=== PATIENT | female | born 1960 | race Caucasian/White ===

== ENCOUNTER 2025-03-02 16:27 | Emergency (ER) | payer MEDICARE, MEDICAID ==
[~2025-03-02 16:27] MED LIST: 24HR ALLERGY REL5 MG PO; ABILIFY15 MG PO; ARTANE2 MG PO; BRIN20TA PO; COLACE100 MG PO; DAILY VALUE1 EACH PO; DEPAKOTE500 MG PO; DOCUSOFT-S100 MG PO; FLONASE ALLERG9.9 ML NAS; KEY-E400 IU PO; KLONOPIN1 MG PO; KLONOPIN2 MG PO; LATU120T PO; LATU80TA PO; LEVOTHYROXINE25 MCG PO; LEXAPRO10 MG PO; LEXAPRO20 MG PO; LIPITOR20 MG PO; LITHIUM CARBON450 M1 PO; MELLARIL PO; MELLARIL50 MG PO; MOM30 M1 PO; MULTI VITAMINS1 TAB PO; MULTIVITAMIN FO1 CAP PO; MYRBETRIQ50 M1 PO; NUED1CAP PO; PRAVACHOL40 MG PO; PRESERVISION A1 EAC3 PO; RESTORIL7.5 MG PO; TRIHEXYPHENIDYL2 M3 PO; VITAMIN B121000 MC3 PO; VITAMIN D325 MC1 PO; VITAMIN D350 MC3 PO
[2025-03-02] MEDS ORDERED: DICLOFENAC SOD50 MG PO (16:30)
[2025-03-02] MEDS ORDERED: CALCIUM CITRAT1 EA18 PO (16:32)
[2025-03-02] MEDS ORDERED: CABERGOLINE0.5 MG PO (16:35)
[2025-03-02] MEDS ORDERED: NYSTATIN CREAM15 GM T (16:38)
[2025-03-02] MEDS ORDERED: DOXYCYCLINE HY100 M3 PO (16:44)
[2025-03-02] MEDS ORDERED: CALMOSEPTINE O3.5 GM T (16:46)
[2025-03-02] MEDS ORDERED: BIPAP (16:50)
[2025-03-02 16:56] VITALS: BP 141/56
[2025-03-02 17:33] LABS: BASO # 0.0 10*3/uL (0.0-0.1); BASO % 0.4 % (0.0-1.0); EOS # 0.1 10*3/uL (0.0-0.4); EOS % 2.0 % (1.0-4.0); MEAN CELL VOLUME 97.4 fl (81.0-99.0); MEAN CORPUSCULAR HGB 30.5 pg (27.0-31.0); MEAN PLATELET VOLUME 11.3 fl (9.6-12.3); MONO # 0.4 10*3/uL (0.1-1.0); MONO % 7.4 % (3.0-9.0); NEUT # 3.8 10*3/uL (2.3-7.9); NEUT % 67.6 % (47.0-73.0); NUCLEATED RED BLOOD CELL 0.0 % (0.0-0.0); NUCLEATED RED BLOOD CELL 0.0 10*3/uL (0.0-0.0); PLATELET COUNT AUTOMATED 154 10*3/uL (130-400); RED CELL DISTRI WIDTH 12.0 % (0-14.5)
[2025-03-02 17:48] LABS: BUN 18 mg/dl (9-23)
[2025-03-09] MEDS ORDERED: PRAVASTATIN SOD40 MG PO (11:43)
[2025-03-09] MEDS ORDERED: DAILY VALUE1 EACH PO (11:43)
[2025-03-09] MEDS ORDERED: DICLOFENAC SOD50 MG PO (11:43)
[2025-03-09] MEDS ORDERED: LEVOTHYROXINE25 MCG PO (11:43)
[2025-03-09] MEDS ORDERED: CALCIUM CITRAT1 EA18 PO (11:43)
[2025-03-09] MEDS ORDERED: FLONASE ALLERG9.9 ML NAS (11:43)
[2025-03-09] MEDS ORDERED: VITAMIN B121000 MC3 PO (11:43)
[2025-03-09] MEDS ORDERED: COLACE100 MG PO (11:43)
[2025-03-09] MEDS ORDERED: DOXYCYCLINE MO100 MG PO (11:43)
[2025-03-09] MEDS ORDERED: VITAMIN D350 MCG PO (11:43)
[2025-03-09] MEDS ORDERED: NYSTATIN CREAM15 GM T (11:43)
[2025-03-09] MEDS ORDERED: CALMOSEPTINE O3.5 GM T (11:43)
[2025-03-09] MEDS ORDERED: LITHIUM CARB300 MG PO (22:09)
[2025-03-09] MEDS ORDERED: CLONAZEPAM1 MG PO (22:09)
[2025-03-09] MEDS ORDERED: RIVASTIGMINE T4.5 M1 PO (22:09)
[2025-03-09] MEDS ORDERED: TRIHEXYPHENIDYL2 M3 PO (22:09)
== END 2025-03-02 21:41 ==
LOC: ED 16:27
PROVIDERS: Internal Medicine
DX: F31.9 Bipolar disorder, unspecified (principal); F25.9 Schizoaffective disorder, unspecified; Z79.899 Other long term (current) drug therapy

== ENCOUNTER 2025-05-10 16:41 | Emergency (ER) | payer MEDICARE, MEDICAID ==
[~2025-05-10] VITALS: Ht 172.7 cm; Wt 99.8 kg
[~2025-05-10 16:41] MED LIST changes: +BIPAP; +CABERGOLINE0.5 MG PO; +CALCIUM CITRAT1 EA18 PO; +CALMOSEPTINE O3.5 GM T; +CLONAZEPAM1 MG PO; +DICLOFENAC SOD50 MG PO; +DOXYCYCLINE HY100 M3 PO; +DOXYCYCLINE MO100 MG PO; +LITHIUM CARB300 MG PO; +NYSTATIN CREAM15 GM T; +PRAVASTATIN SOD40 MG PO; +RIVASTIGMINE T4.5 M1 PO; +VITAMIN D350 MCG PO
[2025-05-10 18:03] LABS: BASO # 0.0 10*3/uL (0.0-0.1); BASO % 0.7 % (0.0-1.0); EOS # 0.1 10*3/uL (0.0-0.4); EOS % 2.1 % (1.0-4.0); MEAN CELL VOLUME 97.4 fl (81.0-99.0); MEAN CORPUSCULAR HGB 30.0 pg (27.0-31.0); MEAN PLATELET VOLUME 11.7 fl (9.6-12.3); MONO # 0.5 10*3/uL (0.1-1.0); MONO % 11.4 % (3.0-9.0); NEUT # 2.7 10*3/uL (2.3-7.9); NEUT % 61.7 % (47.0-73.0); NUCLEATED RED BLOOD CELL 0.0 % (0.0-0.0); NUCLEATED RED BLOOD CELL 0.0 10*3/uL (0.0-0.0); PLATELET COUNT AUTOMATED 128 10*3/uL (130-400); RED CELL DISTRI WIDTH 12.1 % (0-14.5)
[2025-05-10 18:25] LABS: BUN 10 mg/dl (9-23); CPK 105 U/L (34-171); SGPT/ALT 23 U/L (5-49)
[2025-05-10 18:32] LABS: ETHYL ALCOHOL < 3.0 mg/dl (<3)
[2025-05-10 20:56] LABS: BILIRUBIN Negative (Negative); BLOOD Negative (Negative); CLARITY Clear (Clear); COLOR Yellow (Yellow); KETONE Trace (Negative); LEUKO ESTERASE Trace (Negative); NITRITE Negative (Negative); PH 7.5 (4.5-8.0); SPECIFIC GRAVITY 1.010 (1.001-1.030); UROBILINOGEN 0.2 E.U./dl (0.0-1.0)
[2025-05-10 21:02] LABS: URINE AMPHETAMINES Negative (1000ng/ml); URINE BARBITURATES Negative (200ng/ml); URINE BENZODIAZEPINES Negative (200ng/ml); URINE CANNABINOIDS (THC) Negative (50ng/ml); URINE COCAINE Negative (300ng/ml); URINE METHADONE Negative (300ng/ml); URINE OPIATES Negative (300ng/ml); URINE PHENCYCLIDINE Negative (25ng/ml)
[2025-05-10 21:03] VITALS: BP 114/58
[2025-05-10 21:14] LABS: BACTERIA TRACE
[2025-05-10] MEDS ORDERED: ALLERGY RELIEF5 MG PO (21:35)
[2025-05-10] MEDS ORDERED: DICLOFENAC SOD50 MG PO (21:38)
[2025-05-10] MEDS ORDERED: RISPERDAL1 M1 PO (21:42)
[2025-05-10] MEDS ORDERED: VITAMIN E400 UNIT PO (21:46)
[2025-05-10] MEDS ORDERED: KLONOPIN1 M1 PO (21:49)
[2025-05-10] MEDS ORDERED: CABERGOLINE0.5 MG PO (21:52)
[2025-05-10] MEDS ORDERED: LITHIUM CARBON300 M1 PO (21:54)
[2025-05-10] MEDS ORDERED: LITHOBID300 M1 PO (21:55)
[2025-05-10] MEDS ORDERED: LASIX20 MG PO (22:08)
== END 2025-05-10 21:17 | disposition admitted as inpatient to this hospital (09) ==
LOC: ED 16:41
PROVIDERS: Emergency Medicine
DX: R45.6 Violent behavior (principal); R60.0 Localized edema; Z04.6 Encounter for general psychiatric examination, requested by authority; Z79.899 Other long term (current) drug therapy

== ENCOUNTER 2025-06-01 13:42 | Inpatient (IN) | payer MEDICARE, MEDICAID ==
[~2025-06-01] VITALS: Ht 167.6 cm; Wt 119.4 kg
[~2025-06-01 13:42] MED LIST changes: +ALLERGY RELIEF5 MG PO; +DIVALPROEX SOD500 MG PO; +KLONOPIN1 M1 PO; +LASIX20 MG PO; +LATU40TA PO; +LITHIUM CARBON300 M1 PO; +LITHOBID300 M1 PO; +RISPERDAL1 M1 PO; +RIVASTIGMINE TAR3 M1 PO; +VITAMIN E180 M1 PO; +VITAMIN E400 UNIT PO
[2025-06-01] MEDS ORDERED: ACETAMINOPHEN 325 MG TAB PO PRN (16:05)
[2025-06-01] MEDS ORDERED: MG-AL HYDROXIDE/SIMETICONE 30 ML UDC PO PRN (16:05)
[2025-06-01] MEDS ORDERED: Menthol/Zinc Oxide 4 GM THIN T PRN (16:15)
[2025-06-01] MEDS ORDERED: Water, Sterile 10 ML VIAL IM PRN (16:55)
[2025-06-01] MEDS ORDERED: hydrOXYzine hydrochloride 50 MG/ML VIAL IM PRN (16:55)
[2025-06-01] MEDS ORDERED: LORazepam 1 MG TAB PO PRN (16:55)
[2025-06-01] MEDS ORDERED: VITAMIN E 400 IU CAP PO SCH (18:00)
[2025-06-01] MEDS ORDERED: DEXTROSE 5% 1,000 ML IV SCH (18:00)
[2025-06-01 18:31] VITALS: BP 135/100
[2025-06-01] MEDS ORDERED: Paliperidone 6 MG TER PO SCH (21:00)
[2025-06-01 21:14] VITALS: BP 119/86
[2025-06-01] MEDS ORDERED: ATORVASTATIN CALCIUM 10 MG TAB PO SCH (22:00)
[2025-06-02 06:01] LABS: BUN 9 mg/dl (9-23); LDL CHOLESTEROL 73 mg/dL (9-159); SGPT/ALT 369 U/L (5-49)
[2025-06-02 06:04] LABS: CARBAMAZEPINE (TEGRETOL) TOTAL < 0.4 ug/ml (4-12)
[2025-06-02 06:05] LABS: MEAN CELL VOLUME 97.3 fl (81.0-99.0); MEAN CORPUSCULAR HGB 29.6 pg (27.0-31.0); MEAN PLATELET VOLUME 12.1 fl (9.6-12.3); NUCLEATED RED BLOOD CELL 0.0 % (0.0-0.0); NUCLEATED RED BLOOD CELL 0.0 10*3/uL (0.0-0.0); PLATELET COUNT AUTOMATED 93 10*3/uL (130-400); RED CELL DISTRI WIDTH 11.7 % (0-14.5)
[2025-06-02 07:05] LABS: MANUAL DIFF REFLEX YES
[2025-06-02 07:12] LABS: PLATELET SUFFICIENCY LOW (NORMAL)
[2025-06-02 07:59] LABS: VITAMIN D, 25-HYDROXY 67.3 ng/mL (30-100)
[2025-06-02 08:00] VITALS: BP 135/100
[2025-06-02] MEDS ORDERED: Rivastigmine Tartrate 9.5 MG/24 HR PATCH T SCH (09:00)
[2025-06-02] MEDS ORDERED: MYBETRIQ 50 MG PO SCH (10:00)
[2025-06-02 20:00] VITALS: BP 128/81
[2025-06-03 05:43] LABS: BUN 6 mg/dl (9-23); LDL CHOLESTEROL 69 mg/dL (9-159)
[2025-06-03 20:00] VITALS: BP 129/104
[2025-06-04 06:13] LABS: BUN 5 mg/dl (9-23)
[2025-06-04 08:00] VITALS: BP 123/66
[2025-06-04] MEDS ORDERED: DEXTROSE 5% 1,000 ML IV SCH ×2 (08:00→08:15)
[2025-06-04 20:00] VITALS: BP 124/66
[2025-06-04] MEDS ORDERED: Mirtazapine 15 MG TAB PO SCH (21:00)
[2025-06-05] MEDS ORDERED: DOCUSATE SODIUM 100 MG CAP PO SCH (09:00)
[2025-06-05 09:39] VITALS: BP 109/76
[2025-06-05] MEDS ORDERED: PALIPERIDONE PALMITATE 234 MG INJECTION IM ONE (10:05)
[2025-06-05 20:00] VITALS: BP 154/88
[2025-06-06 08:00] VITALS: BP 152/91
[2025-06-06 17:52] LABS: BILIRUBIN Negative (Negative); BLOOD Negative (Negative); CLARITY Clear (Clear); COLOR Yellow (Yellow); KETONE Trace (Negative); LEUKO ESTERASE Trace (Negative); NITRITE Negative (Negative); PH 5.5 (4.5-8.0); SPECIFIC GRAVITY 1.015 (1.001-1.030); UROBILINOGEN 1.0 E.U./dl (0.0-1.0)
[2025-06-06 18:14] LABS: BACTERIA 1+
[2025-06-06 18:15] LABS: MUCOUS 2+
[2025-06-06 20:00] VITALS: BP 138/92
[2025-06-07 08:00] VITALS: BP 137/66
[2025-06-07 20:00] VITALS: BP 137/66
[2025-06-08 06:19] LABS: MEAN CELL VOLUME 97.3 fl (81.0-99.0); MEAN CORPUSCULAR HGB 29.8 pg (27.0-31.0); MEAN PLATELET VOLUME 12.8 fl (9.6-12.3); NUCLEATED RED BLOOD CELL 0.0 % (0.0-0.0); NUCLEATED RED BLOOD CELL 0.0 10*3/uL (0.0-0.0); PLATELET COUNT AUTOMATED 111 10*3/uL (130-400); RED CELL DISTRI WIDTH 12.4 % (0-14.5)
[2025-06-08 06:31] LABS: BUN 12 mg/dl (9-23); SGPT/ALT 117 U/L (5-49)
[2025-06-08 07:09] LABS: MANUAL DIFF REFLEX YES
[2025-06-08 07:21] LABS: BASOPHILS 1 % (0-1); PLATELET SUFFICIENCY LOW (NORMAL)
[2025-06-08 08:00] VITALS: BP 136/100
[2025-06-08] MEDS ORDERED: DEXTROSE 5% SALINE 0.45% 1,000 ML IV SCH (08:00)
[2025-06-08] MEDS ORDERED: DEXTROSE 5% 1,000 ML IV SCH (10:00)
[2025-06-08] MEDS ORDERED: PALIPERIDONE PALMITATE 156 MG INJECTION IM SCH (10:20)
[2025-06-08 20:00] VITALS: BP 146/79
[2025-06-09 06:46] LABS: BUN 16 mg/dl (9-23)
[2025-06-09 08:00] VITALS: BP 135/77
[2025-06-09] MEDS ORDERED: RIVASTIGMINE 13.3 MG/24 HR TDM T SCH (09:00)
[2025-06-09 12:12] LABS: FREE T4 1.39 ng/dl (0.89-1.76)
[2025-06-09 20:00] VITALS: BP 140/82
[2025-06-10 05:42] LABS: BUN 11 mg/dl (9-23)
[2025-06-10 08:00] VITALS: BP 118/62
[2025-06-10 20:00] VITALS: BP 98/43
[2025-06-11 06:26] LABS: BUN 8 mg/dl (9-23)
[2025-06-11 08:00] VITALS: BP 146/70
[2025-06-11] MEDS ORDERED: POTASSIUM CHLORIDE 20 MEQ TAB PO ONE (10:50)
[2025-06-11 20:00] VITALS: BP 106/72
[2025-06-12 09:20] VITALS: BP 129/51
[2025-06-12] MEDS ORDERED: MED. FROM HOME 1 EACH EA PO SCH (11:00)
[2025-06-12 12:15] LABS: BUN 6 mg/dl (9-23)
[2025-06-12 20:00] VITALS: BP 140/70
[2025-06-13 07:49] VITALS: BP 156/87
[2025-06-13 08:03] LABS: BUN 6 mg/dl (9-23)
[2025-06-13] MEDS ORDERED: VORTIOXETINE HYDROBROMIDE 10 MG TAB PO SCH (10:15)
[2025-06-13] MEDS ORDERED: [UNRECOGNIZED DRUG - OTHER] PO ONE (10:15)
[2025-06-13 20:00] VITALS: BP 130/81
[2025-06-14 08:31] VITALS: BP 155/87
[2025-06-14] MEDS ORDERED: [UNRECOGNIZED DRUG - OTHER] PO SCH (12:05)
[2025-06-14 20:00] VITALS: BP 150/100
[2025-06-15 06:21] LABS: BUN 10 mg/dl (9-23)
[2025-06-15 08:00] VITALS: BP 112/88
[2025-06-15] MEDS ORDERED: [UNRECOGNIZED DRUG - OTHER] PO SCH (13:00)
[2025-06-15 20:00] VITALS: BP 143/84
[2025-06-16 08:00] VITALS: BP 134/80
[2025-06-16] MEDS ORDERED: VORTIOXETINE HYDROBROMIDE 20 MG TAB PO SCH (09:00)
[2025-06-16 20:00] VITALS: BP 136/78
[2025-06-17] MEDS ORDERED: Ondansetron Hydrochloride 4 MG TAB PO PRN (01:30)
[2025-06-17] MEDS ORDERED: Ondansetron Hydrochloride 4 MG/2 ML VIAL IM PRN (01:30)
[2025-06-17] MEDS ORDERED: SUCRALFATE 1 GM TAB PO ONE (01:30)
[2025-06-17] MEDS ORDERED: Pantoprazole Sodium 20 MG TAB PO SCH (01:30)
[2025-06-17] MEDS ORDERED: DEXTROSE 5% SALINE 0.45% 1,000 ML IV SCH (03:15)
[2025-06-17] MEDS ORDERED: Ondansetron Hydrochloride 4 MG/2 ML VIAL IV PRN (03:20)
[2025-06-17 03:29] VITALS: BP 118/60
[2025-06-17] MEDS ORDERED: DEXTROSE 5% SALINE 0.45% 1,000 ML IV ONE (04:38)
[2025-06-17 04:50] LABS: BASO # 0.0 10*3/uL (0.0-0.1); BASO % 0.4 % (0.0-1.0); EOS # 0.0 10*3/uL (0.0-0.4); EOS % 0.0 % (1.0-4.0); MEAN CELL VOLUME 92.4 fl (81.0-99.0); MEAN CORPUSCULAR HGB 29.2 pg (27.0-31.0); MEAN PLATELET VOLUME 12.9 fl (9.6-12.3); MONO # 0.3 10*3/uL (0.1-1.0); MONO % 6.0 % (3.0-9.0); NEUT # 3.9 10*3/uL (2.3-7.9); NEUT % 83.6 % (47.0-73.0); NUCLEATED RED BLOOD CELL 0.0 % (0.0-0.0); NUCLEATED RED BLOOD CELL 0.0 10*3/uL (0.0-0.0); PLATELET COUNT AUTOMATED 97 10*3/uL (130-400); RED CELL DISTRI WIDTH 12.4 % (0-14.5)
[2025-06-17 05:14] LABS: BUN 17 mg/dl (9-23)
[2025-06-17 08:00] VITALS: BP 125/63
[2025-06-17 20:00] VITALS: BP 138/119
[2025-06-18 08:53] VITALS: BP 119/66
[2025-06-18 22:00] VITALS: BP 96/71
[2025-06-19 08:00] VITALS: BP 113/59
[2025-06-19] MEDS ORDERED: MED. FROM HOME 1 EACH EA PO SCH (09:00)
[2025-06-19 20:00] VITALS: BP 130/89
[2025-06-20 07:56] VITALS: BP 145/82
[2025-06-20 20:00] VITALS: BP 146/85
[2025-06-21 06:34] LABS: BUN 27.0 mg/dl (9-23)
[2025-06-21] MEDS ORDERED: EXELON1 EAC2 TD (07:49)
[2025-06-21] MEDS ORDERED: COBENFY PO (07:49)
[2025-06-21] MEDS ORDERED: RITALIN5 MG PO (07:50)
[2025-06-21] MEDS ORDERED: TRINTELLIX20 MG PO (07:50)
[2025-06-21] MEDS ORDERED: INVEGA SUSTENN156 MG IM (07:51)
[2025-06-21] MEDS ORDERED: DEXTROSE 5% 1,000 ML IV SCH (08:00)
== END 2025-06-21 07:40 | disposition short-term general hospital (02) | DRG 885 ==
LOC: 3N 13:42
PROVIDERS: Counselor Professional; Family Medicine; Registered Nurse; Student in an Organized Health Care Education/Training Program; ADMIT Psychiatry & Neurology Psychiatry; ATTEND Psychiatry & Neurology Psychiatry
PROC: GZHZZZZ Group Psychotherapy (ICD-10-PCS; principal; 2025-06-02)
PROC: GZ56ZZZ Individual Psychotherapy, Supportive (ICD-10-PCS; 2025-06-02)
DX: F25.9 Schizoaffective disorder, unspecified (principal); F05 Delirium due to known physiological condition; E87.1 Hypo-osmolality and hyponatremia; N39.0 Urinary tract infection, site not specified; E87.0 Hyperosmolality and hypernatremia; F31.9 Bipolar disorder, unspecified; E66.9 Obesity, unspecified; D69.6 Thrombocytopenia, unspecified; D72.819 Decreased white blood cell count, unspecified; E87.8 Other disorders of electrolyte and fluid balance, not elsewhere classified; R73.9 Hyperglycemia, unspecified; E83.39 Other disorders of phosphorus metabolism; D35.2 Benign neoplasm of pituitary gland; E78.5 Hyperlipidemia, unspecified; F41.9 Anxiety disorder, unspecified; Z79.899 Other long term (current) drug therapy; Z79.01 Long term (current) use of anticoagulants; Z79.2 Long term (current) use of antibiotics; Z68.31 Body mass index [BMI] 31.0-31.9, adult

== ENCOUNTER 2025-06-21 07:48 | Inpatient (IN) | payer MEDICARE, MEDICAID ==
[~2025-06-21] VITALS: Ht 177.8 cm; Wt 103.0 kg
[2025-06-21] MEDS ORDERED: EXELON1 EAC2 TD (07:49)
[2025-06-21] MEDS ORDERED: COBENFY PO (07:49)
[2025-06-21] MEDS ORDERED: TRINTELLIX20 MG PO (07:50)
[2025-06-21] MEDS ORDERED: RITALIN5 MG PO (07:50)
[2025-06-21] MEDS ORDERED: INVEGA SUSTENN156 MG IM (07:51)
[2025-06-21 08:00] VITALS: BP 151/76
[2025-06-21] MEDS ORDERED: DEXTROSE 5% 1,000 ML IV SCH (08:25)
[2025-06-21] MEDS ORDERED: BISACODYL 5 MG TAB PO PRN (08:30)
[2025-06-21] MEDS ORDERED: Ondansetron Hydrochloride 4 MG/2 ML VIAL IV PRN (08:30)
[2025-06-21] MEDS ORDERED: BISACODYL 10 MG SUPP R PRN (08:30)
[2025-06-21] MEDS ORDERED: ACETAMINOPHEN 650 MG SUPP R PRN (08:30)
[2025-06-21] MEDS ORDERED: ACETAMINOPHEN 325 MG TAB PO PRN (08:30)
[2025-06-21] MEDS ORDERED: [UNRECOGNIZED DRUG - OTHER] PO SCH (09:00)
[2025-06-21] MEDS ORDERED: RIVASTIGMINE 13.3 MG/24 HR TDM T SCH ×2 (09:00→10:00)
[2025-06-21] MEDS ORDERED: VORTIOXETINE HYDROBROMIDE 20 MG TAB PO SCH (10:00)
[2025-06-21] MEDS ORDERED: MED. FROM HOME 1 EACH EA PO SCH (10:00)
[2025-06-21] MEDS ORDERED: VITAMIN E 400 IU CAP PO SCH (10:00)
[2025-06-21] MEDS ORDERED: FLUTICASONE PROPIONATE Nasal 16 Gm spray NAS SCH (10:00)
[2025-06-21 11:12] LABS: BASO # 0.0 10*3/uL (0.0-0.1); BASO % 0.4 % (0.0-1.0); EOS # 0.0 10*3/uL (0.0-0.4); EOS % 0.2 % (1.0-4.0); MEAN CELL VOLUME 99.2 fl (81.0-99.0); MEAN CORPUSCULAR HGB 29.6 pg (27.0-31.0); MEAN PLATELET VOLUME 12.6 fl (9.6-12.3); MONO # 0.5 10*3/uL (0.1-1.0); MONO % 10.5 % (3.0-9.0); NEUT # 3.7 10*3/uL (2.3-7.9); NEUT % 75.3 % (47.0-73.0); NUCLEATED RED BLOOD CELL 0.0 % (0.0-0.0); NUCLEATED RED BLOOD CELL 0.0 10*3/uL (0.0-0.0); PLATELET COUNT AUTOMATED 78 10*3/uL (130-400); RED CELL DISTRI WIDTH 13.0 % (0-14.5)
[2025-06-21 11:33] LABS: BUN 30.0 mg/dl (9-23)
[2025-06-21 11:46] LABS: URINE CHLORIDE, RANDOM < 20 mmol/L
[2025-06-21 11:48] LABS: BILIRUBIN Negative (Negative); BLOOD Negative (Negative); CLARITY Clear (Clear); COLOR Yellow (Yellow); KETONE Negative (Negative); LEUKO ESTERASE 1+ (Negative); NITRITE Negative (Negative); PH 6.0 (4.5-8.0); SPECIFIC GRAVITY 1.015 (1.001-1.030); UROBILINOGEN 1.0 E.U./dl (0.0-1.0)
[2025-06-21 12:00] VITALS: BP 145/77
[2025-06-21 12:13] LABS: BACTERIA 1+; RBC 0-2 rbc/hpf (0-2)
[2025-06-21 15:21] LABS: BUN 28.0 mg/dl (9-23)
[2025-06-21] MEDS ORDERED: PHYTONADIONE 10 MG in SODIUM CHLORIDE 0.9% 50 ML IV ONE (15:30)
[2025-06-21 16:00] VITALS: BP 144/81
[2025-06-21 19:10] LABS: BUN 26.0 mg/dl (9-23)
[2025-06-21 20:00] VITALS: BP 123/66
[2025-06-21] MEDS ORDERED: ATORVASTATIN CALCIUM 10 MG TAB PO SCH (22:00)
[2025-06-22] VITALS (10 sets, daily range): BP systolic 101–162; BP diastolic 48–64
[2025-06-22 00:46] LABS: BUN 23.0 mg/dl (9-23)
[2025-06-22 05:58] LABS: BASO # 0.0 10*3/uL (0.0-0.1); BASO % 0.2 % (0.0-1.0); EOS # 0.1 10*3/uL (0.0-0.4); EOS % 1.9 % (1.0-4.0); MEAN CELL VOLUME 99.1 fl (81.0-99.0); MEAN CORPUSCULAR HGB 29.4 pg (27.0-31.0); MEAN PLATELET VOLUME 12.6 fl (9.6-12.3); MONO # 0.4 10*3/uL (0.1-1.0); MONO % 10.4 % (3.0-9.0); NEUT # 2.8 10*3/uL (2.3-7.9); NEUT % 66.8 % (47.0-73.0); NUCLEATED RED BLOOD CELL 0.0 % (0.0-0.0); NUCLEATED RED BLOOD CELL 0.0 10*3/uL (0.0-0.0); PLATELET COUNT AUTOMATED 69 10*3/uL (130-400); RED CELL DISTRI WIDTH 12.9 % (0-14.5)
[2025-06-22 06:06] LABS: BUN 22 mg/dl (9-23); SGPT/ALT 144 U/L (5-49)
[2025-06-22] MEDS ORDERED: SODIUM PHOSPHATE 30 MMOL in SODIUM CHLORIDE 0.9% 500 ML IV ONE (07:25)
[2025-06-22] MEDS ORDERED: Lactated Ringer's Solution 500 ML IV ONE (11:54)
[2025-06-22 17:14] LABS: BUN 18 mg/dl (9-23)
[2025-06-22] MEDS ORDERED: POTASSIUM CHLORIDE 40 MEQ in DEXTROSE 5% 1,000 ML IV SCH (17:50)
[2025-06-22 23:17] LABS: BUN 14 mg/dl (9-23)
[2025-06-23] VITALS: BP 138/61
[2025-06-23 04:00] VITALS: BP 122/79
[2025-06-23 04:35] LABS: BASO # 0.0 10*3/uL (0.0-0.1); BASO % 0.2 % (0.0-1.0); EOS # 0.2 10*3/uL (0.0-0.4); EOS % 3.0 % (1.0-4.0); MEAN CORPUSCULAR HGB 29.7 pg (27.0-31.0); MEAN PLATELET VOLUME 13.2 fl (9.6-12.3); MONO # 0.5 10*3/uL (0.1-1.0); MONO % 10.7 % (3.0-9.0); NEUT # 3.3 10*3/uL (2.3-7.9); NEUT % 66.4 % (47.0-73.0); NUCLEATED RED BLOOD CELL 0.0 % (0.0-0.0); NUCLEATED RED BLOOD CELL 0.0 10*3/uL (0.0-0.0); PLATELET COUNT AUTOMATED 65 10*3/uL (130-400); RED CELL DISTRI WIDTH 12.7 % (0-14.5)
[2025-06-23 04:36] LABS: MEAN CELL VOLUME 95.8 fl (81.0-99.0)
[2025-06-23 04:55] LABS: BUN 11 mg/dl (9-23); SGPT/ALT 133 U/L (5-49)
[2025-06-23 08:00] VITALS: BP 137/50
[2025-06-23] MEDS ORDERED: Vancomycin Hydrochloride 1,000 MG in SODIUM CHLORIDE 0.9% 250 ML IV SCH (09:35)
[2025-06-23] MEDS ORDERED: DEXTROSE 5% 0 ML IV ONE (10:23)
[2025-06-23 12:00] VITALS: BP 126/71
[2025-06-23 16:00] VITALS: BP 125/71
[2025-06-23] MEDS ORDERED: POTASSIUM CHLORIDE 40 MEQ in DEXTROSE 5% 1,000 ML IV SCH (17:00)
[2025-06-23 20:00] VITALS: BP 129/77
[2025-06-24] VITALS: BP 111/55
[2025-06-24 06:16] LABS: BASO # 0.0 10*3/uL (0.0-0.1); BASO % 0.2 % (0.0-1.0); EOS # 0.1 10*3/uL (0.0-0.4); EOS % 1.8 % (1.0-4.0); MEAN CELL VOLUME 97.2 fl (81.0-99.0); MEAN CORPUSCULAR HGB 29.3 pg (27.0-31.0); MEAN PLATELET VOLUME 13.2 fl (9.6-12.3); MONO # 0.7 10*3/uL (0.1-1.0); MONO % 11.1 % (3.0-9.0); NEUT # 4.4 10*3/uL (2.3-7.9); NEUT % 72.8 % (47.0-73.0); NUCLEATED RED BLOOD CELL 0.0 % (0.0-0.0); NUCLEATED RED BLOOD CELL 0.0 10*3/uL (0.0-0.0); PLATELET COUNT AUTOMATED 73 10*3/uL (130-400); RED CELL DISTRI WIDTH 12.5 % (0-14.5)
[2025-06-24 06:29] LABS: BUN 8 mg/dl (9-23); SGPT/ALT 122 U/L (5-49)
[2025-06-24 08:00] VITALS: BP 141/93
[2025-06-24 12:00] VITALS: BP 157/92
[2025-06-24 16:00] VITALS: BP 150/60
[2025-06-24] MEDS ORDERED: FOAM BANDAGE 1 EACH BANDAGE T ONE (16:33)
[2025-06-25] VITALS (9 sets, daily range): BP systolic 119–156; BP diastolic 66–82
[2025-06-25 05:29] LABS: BUN 6 mg/dl (9-23); SGPT/ALT 102 U/L (5-49)
[2025-06-25 06:22] LABS: MEAN CELL VOLUME 97.3 fl (81.0-99.0); MEAN CORPUSCULAR HGB 29.2 pg (27.0-31.0); MEAN PLATELET VOLUME 13.7 fl (9.6-12.3); NUCLEATED RED BLOOD CELL 0.0 % (0.0-0.0); NUCLEATED RED BLOOD CELL 0.0 10*3/uL (0.0-0.0); PLATELET COUNT AUTOMATED 76 10*3/uL (130-400); RED CELL DISTRI WIDTH 12.7 % (0-14.5)
[2025-06-25 06:50] LABS: MANUAL DIFF REFLEX YES
[2025-06-25 06:52] LABS: PLATELET SUFFICIENCY LOW (NORMAL)
[2025-06-25] MEDS ORDERED: DIATRIZOATE MEG/DIATRIZO. SOD 120 ML BOT PO ONE (08:40)
[2025-06-25] MEDS ORDERED: DIATRIZOATE MEG/DIATRIZO. SOD 120 ML BOT ONE (09:03)
[2025-06-25] MEDS ORDERED: POTASSIUM CHLORIDE 40 MEQ in DEXTROSE 5% 1,000 ML IV SCH (16:00)
[2025-06-26] VITALS: BP 158/74
[2025-06-26 06:12] LABS: BUN 6 mg/dl (9-23); SGPT/ALT 80 U/L (5-49)
[2025-06-26 06:42] LABS: BASO # 0.0 10*3/uL (0.0-0.1); BASO % 0.3 % (0.0-1.0); EOS # 0.1 10*3/uL (0.0-0.4); EOS % 1.6 % (1.0-4.0); MEAN CELL VOLUME 98.0 fl (81.0-99.0); MEAN CORPUSCULAR HGB 29.3 pg (27.0-31.0); MEAN PLATELET VOLUME 13.4 fl (9.6-12.3); MONO # 0.8 10*3/uL (0.1-1.0); MONO % 9.9 % (3.0-9.0); NEUT # 6.0 10*3/uL (2.3-7.9); NEUT % 78.0 % (47.0-73.0); NUCLEATED RED BLOOD CELL 0.0 % (0.0-0.0); NUCLEATED RED BLOOD CELL 0.0 10*3/uL (0.0-0.0); PLATELET COUNT AUTOMATED 83 10*3/uL (130-400); RED CELL DISTRI WIDTH 12.6 % (0-14.5)
[2025-06-26 08:00] VITALS: BP 137/95
[2025-06-26 12:00] VITALS: BP 101/67
[2025-06-26] MEDS ORDERED: METHYLPHENIDATE 10 MG PO SCH ×2 (13:43→14:13)
[2025-06-26] MEDS ORDERED: DEXTROSE 5% 1,000 ML IV SCH (15:00)
[2025-06-26 16:00] VITALS: BP 138/73
[2025-06-26] MEDS ORDERED: Phosphorus/Potassium 1.45 GM PACKET PO SCH (17:00)
[2025-06-26 20:00] VITALS: BP 146/88
[2025-06-27] VITALS: BP 137/71
[2025-06-27 06:35] LABS: BUN 8 mg/dl (9-23)
[2025-06-27 08:00] VITALS: BP 152/90
[2025-06-27] MEDS ORDERED: METHYLPHENIDATE 10 MG PO SCH (09:00)
[2025-06-27 12:00] VITALS: BP 120/96
[2025-06-27 16:00] VITALS: BP 160/70
[2025-06-27 20:00] VITALS: BP 155/86
[2025-06-28] VITALS: BP 170/90
[2025-06-28] MEDS ORDERED: VANCOMYCIN/WATER FOR INJ (PEG) 150 ML IV SCH (06:00)
[2025-06-28 06:03] LABS: BASO # 0.0 10*3/uL (0.0-0.1); BASO % 0.3 % (0.0-1.0); EOS # 0.1 10*3/uL (0.0-0.4); EOS % 1.3 % (1.0-4.0); MEAN CORPUSCULAR HGB 29.4 pg (27.0-31.0); MEAN PLATELET VOLUME 13.1 fl (9.6-12.3); MONO # 0.6 10*3/uL (0.1-1.0); MONO % 10.1 % (3.0-9.0); NEUT # 5.0 10*3/uL (2.3-7.9); NEUT % 79.9 % (47.0-73.0); NUCLEATED RED BLOOD CELL 0.0 % (0.0-0.0); NUCLEATED RED BLOOD CELL 0.0 10*3/uL (0.0-0.0); PLATELET COUNT AUTOMATED 84 10*3/uL (130-400); RED CELL DISTRI WIDTH 12.7 % (0-14.5)
[2025-06-28 06:30] LABS: BUN 9 mg/dl (9-23)
[2025-06-28 06:33] LABS: MEAN CELL VOLUME 94.3 fl (81.0-99.0)
[2025-06-28 08:00] VITALS: BP 116/43
[2025-06-28] MEDS ORDERED: METHYLPHENIDATE 10 MG PO SCH (09:27)
[2025-06-28] MEDS ORDERED: PANTOPRAZOLE SO40 M2 NG (10:37)
[2025-06-28 12:00] VITALS: BP 123/78
[2025-07-08] MEDS ORDERED: PALIPERIDONE PALMITATE 156 MG INJECTION IM SCH (09:00)
== END 2025-06-28 15:13 | DRG 682 ==
LOC: ICCU 07:48 → 4E 06-24 02:13
PROVIDERS: Nurse Practitioner Family; Student in an Organized Health Care Education/Training Program; ADMIT Internal Medicine; ATTEND Internal Medicine
PROC: 0DH63UZ Insertion of Feeding Device into Stomach, Percutaneous Approach (ICD-10-PCS; principal; 2025-06-22)
DX: N17.0 Acute kidney failure with tubular necrosis (principal); E43 Unspecified severe protein-calorie malnutrition; G93.41 Metabolic encephalopathy; E87.0 Hyperosmolality and hypernatremia; N30.00 Acute cystitis without hematuria; F05 Delirium due to known physiological condition; R73.9 Hyperglycemia, unspecified; D69.6 Thrombocytopenia, unspecified; E78.2 Mixed hyperlipidemia; D72.819 Decreased white blood cell count, unspecified; E87.8 Other disorders of electrolyte and fluid balance, not elsewhere classified; E83.39 Other disorders of phosphorus metabolism; R74.01 Elevation of levels of liver transaminase levels; F31.9 Bipolar disorder, unspecified; F41.9 Anxiety disorder, unspecified; F25.9 Schizoaffective disorder, unspecified; E66.9 Obesity, unspecified; Z79.899 Other long term (current) drug therapy; Z79.01 Long term (current) use of anticoagulants; Z79.2 Long term (current) use of antibiotics; Z68.31 Body mass index [BMI] 31.0-31.9, adult